=== PATIENT | male | born 1945 | race Caucasian/White ===

== ENCOUNTER 2016-12-23 14:57 | Emergency (ER) ==
[2016-12-23 15:01] VITALS: BP 137/76; TEMP 98.8; BMI 28.1
[2016-12-23 15:48] LABS: BASOPHILS # (AUTO) 0.1 K/uL (0-0.2); BASOPHILS % (AUTO) 0.5 % (0.0-3.0); EOSINOPHILS # (AUTO) 0.1 K/ul (0.0-0.7); EOSINOPHILS % (AUTO) 0.8 % (0.0-7.0); HEMATOCRIT 43.3 % (42.0-52.0); HEMOGLOBIN 14.8 g/dl (14.0-18.0); IMMATURE GRANULOCYTE % (AUTO) 0.3 % (0.0-5.0); LYMPHOCYTES # (AUTO) 1.9 K/uL (0.60-3.4); LYMPHOCYTES % (AUTO) 17.7 (10.0-50.0); MEAN CORPUSCULAR HEMOGLOBIN 33.3 pg (27.0-31.0); MEAN CORPUSCULAR HGB CONC 34.2 (31.8-35.4); MEAN CORPUSCULAR VOLUME 97.3 fl (80.0-94.0); MONOCYTES # (AUTO) 0.8 K/uL (0.4-2.0); MONOCYTES % (AUTO) 6.9 (0-10); NEUTROPHILS % (AUTO) 73.8; PLATELET COUNT 200 10^3/uL (140-440); RED BLOOD COUNT 4.45 10^6/ul (4.70-6.10); WHITE BLOOD COUNT 10.88 K/ul (4.2-10.2)
[2016-12-23 16:14] LABS: ALANINE AMINOTRANSFERASE 11 U/L (12-78); ALBUMIN 4.1 g/dL (3.4-5.0); ALBUMIN/GLOBULIN RATIO 1.28; ALKALINE PHOSPHATASE 51 U/L (56-119); ANION GAP 13.2; ASPARTATE AMINO TRANSFERASE 14 U/L (15-37); BILIRUBIN,TOTAL 1.29 mg/dL (0.00-1.20); BLOOD UREA NITROGEN 15 mg/dL (7-18); BUN/CREATININE RATIO 11.36; CALCIUM 9.3 mg/dL (8.2-10.2); CARBON DIOXIDE 27 mmol/L (23-31); CHLORIDE 104 mmol/L (98-107); CREATINE KINASE 65 U/L; CREATININE 1.32 mg/dL (0.60-1.10); GLUCOSE 101 mg/dL (82-115); POTASSIUM 4.2 mmol/L (3.5-5.1); SODIUM 140 mmol/L (136-145); TOTAL PROTEIN 7.3 g/dL (5.8-8.1)
--- NOTE | 2016-12-23 16:41 | CT ---
EXAM: CT chest without contrast HISTORY: Cough with history of emphysema. COMPARISON: CT chest 02/28/2014 and 03/06/2011 TECHNIQUE: Serial axial images of the chest were obtained from the lung apices to the upper abdomen without contrast. These were viewed in multiple planes. FINDINGS: The thyroid is normal. The visualized vessels are unremarkable without aneurysm or steno sis. The heart is normal in size without pericardial effusion. There are no pathologically enlarge d mediastinal or hilar lymph nodes. Scattered calcified mediastinal and hilar lymph nodes are presen t. There is no pneumothorax or pleural effusion. There is mild right basilar atelectasis. There is a central cavitary right lower lobe pulmonary nodule measuring 1.3 cm in diameter which is unchanged s michaelle 2013. There is mild emphysematous disease. There is a stable left upper lobe pleural nodule. The airways are patent. No new consolidation or nodule is identified. Soft tissues in the upper abdomen demonstrate mild perinephric stranding. The osseous structures de monstrate mild degenerative disease of the spine. IMPRESSION: 1. No change in right lower lobe cavitary pulmonary nodule since 2013 is considered benign. 2. Mild right basilar atelectasis with mild scattered emphysema. 3. Sequela of old granulomatous disease.
[2016-12-23] MEDS ORDERED: DECADRON 4 MG/ML SDV IM STA (16:52)
--- NOTE | 2016-12-23 16:52 | ED.PDOC ---
General ED Provider: Dr. SANDI CASILLAS Chief Complaint: Cough Stated Complaint: cough, bronchitis Time Seen by Physician: 15:00 (seen with staff at all times ) Mode of Arrival: Walk-In Information Source: Patient Exam Limitations: No limitations Primary Care Provider: DAMIEN ZULETA Nursing and Triage Documentation Reviewed and Agree: Yes Respiratory Complaint Exam - Respiratory Complaint/Exam Onset/Duration: 2 days Symptoms Are: Resolved Timing: Intermittent Initial Severity: Moderate Current Severity: None Location: Chest Character: Reports: Productive cough Alleviating: Reports: Spontaneous resolution Associated Signs and Symptoms: Denies: Rapid breathing, Dyspnea, Fever, Chills, Chest pain, Pleuritic chest pain, Wheezing, Hemoptysis, Dizziness, Calf pain, Calf swelling, Edema, URI, Nasal congestion, Hoarseness, Sinus discomfort, Vomiting, Sore throat, Weight loss, Decreased oral intake, Increased thirst, Increased appetite, Increased urination Related History: Reports: Similar episode History of Healthcare-Acquired Pneumonia: No Related Surgical History: Reports: None Pulmonary Embolism Risk Factors: None Review of Systems - Review Of Systems Constitutional: Reports: No symptoms Eyes: Reports: No symptoms Ears, Nose, Mouth, Throat: Reports: No symptoms Respiratory: Reports: Cough Cardiac: Reports: No symptoms GI: Reports: No symptoms : Reports: No symptoms Musculoskeletal: Reports: No symptoms Skin: Reports: No symptoms Neurological: Reports: No symptoms Endocrine: Reports: No symptoms Hematologic/Lymphatic: Reports: No symptoms All Other Systems: Reviewed and Negative Past Medical History - Past Medical History Previously Healthy: Yes Endocrine: Reports: None Cardiovascular: Reports: None Respiratory: Reports: None Hematological: Reports: None Gastrointestinal: Reports: None Genitourinary: Reports: None Neuro/Psych: Reports: None Musculoskeletal: Reports: None Cancer: Reports: None - Surgical History General Surgical History: Reports: None - Family History Family History: Reports: None - Social History Smoking Status: Former smoker Hx Substance Use: No Alcohol Screening: None Physical Exam - Physical Exam Appearance: Well-appearing, No pain distress, Well-nourished Eyes: BRIAN, EOMI, Conjunctiva clear ENT: Ears normal, Nose normal, Oropharynx normal Respiratory: Airway patent, Breath sounds clear, Breath sounds equal, Respirations nonlabored Cardiovascular: RRR, Pulses normal, No rub, No murmur GI/: Soft, Nontender, No masses, Bowel sounds normal, No Organomegaly Musculoskeletal: Normal strength, ROM intact, No edema, No calf tenderness Skin: Warm, Dry, Normal color Neurological: Sensation intact, Motor intact, Reflexes intact, Cranial nerves intact, Alert, Oriented Psychiatric: Affect appropriate, Mood appropriate Interpretation - Radiology Interpretation Radiology Interpretation By: Radiologist Radiology Results: No acute changes Exam Interpreted: CT Scan - [place] Operator Rate: Normal Rhythm: Sinus Ectopy: None - EKG Interpretation Rate: Normal Rhythm: Sinus Ectopy: None Golden: NL ST Segment: Normal Critical Care Note - Critical Care Note Total Time (mins): 0 Course - Course Hematology/Chemistry: 12/23/16 15:42 12/23/16 15:42 Orders, Labs, Meds: Lab Review 12/23/16 15:42 WBC 10.88 H RBC 4.45 L Hgb 14.8 Hct 43.3 MCV 97.3 H MCH 33.3 H MCHC 34.2 RDW Coeff of Ariad[place] 12.5 Plt Count 200 Immature Gran % (Auto) 0.3 Neut % (Auto) 73.8 Lymph % (Auto) 17.7 [place] % (Auto) 6.9 Eos % (Auto) 0.8 Baso % (Auto) 0.5 Immature Gran # (Auto) 0.0 Neut # 8.0 H Lymph # 1.9 [place] # 0.8 Eos # 0.1 Baso # 0.1 D-Dimer (Manual) 501.16 Sodium 140 Potassium 4.2 Chloride 104 Carbon Dioxide 27 Anion Gap 13.2 BUN 15 Creatinine 1.32 H Estimated GFR (MDRD) 53.00 BUN/Creatinine Ratio 11.36 Glucose 101 Calcium 9.3 Total Bilirubin 1.29 H AST 14 L ALT 11 L Alkaline Phosphatase 51 L Total Creatine Kinase 65 Troponin I < 0.0100 Total Protein 7.3 Albumin 4.1 Globulin 3.2 Albumin/Globulin Ratio 1.28 Orders Category Date Time Status EKG-(ED ONLY) Stat CARDIO 12/23/16 15:26 Completed CBC W/ AUTO DIFF Stat LAB 12/23/16 15:42 Completed COMPREHENSIVE METABOLIC PANEL Stat LAB 12/23/16 15:42 Completed CREATINE KINASE Stat LAB 12/23/16 15:42 Completed D-DIMER Stat LAB 12/23/16 15:42 Completed TROPONIN I Stat LAB 12/23/16 15:[address] CHEST W/O CONTRAST Stat RADS 12/23/16 15:25 Completed Vital Signs: Temp Pulse Resp BP Pulse Ox 12/23/16 14:58 98.8 F 84 16 137/76 96 Departure - Departure Time of Disposition: 16:52 Disposition: HOME SELF-CARE Discharge Problem: Cough, Bronchitis Condition: Good Pt referred to PMD for follow-up: No Prescriptions: Azithromycin [Zithromax] 500 mg PO DIRECTED #6 tablet Allergies/Adverse Reactions: Allergies doxycycline Adverse Reaction (Verified 12/23/16 15:02) the po version made him break out in rash but was able to take doxycycline per iv. they told him it was probably the coating. Home Medications: Ambulatory Orders Albuterol Sulfate [Proair Hfa] 2 puff IH BID PRN 12/23/16 Azithromycin [Zithromax] 500 mg PO DIRECTED #6 tablet 12/23/16 Simvastatin 20 mg PO BEDTIME 12/23/16 Disposition Discussed With: Patient
[2016-12-23] MEDS ORDERED: ZITHROMAX PO STA (17:05)
== END 2016-12-23 17:43 | disposition home or self-care (01) ==
LOC: ED 14:57
DX: J40 Bronchitis, not specified as acute or chronic (principal)
CPT/HCPCS: 36415; 80053; 82550; 84484; 85025; 85379; 93005; 93010; 96372; 99283

== ENCOUNTER 2016-12-28 10:18 | Outpatient (CLI) ==
--- NOTE | 2016-12-28 11:24 | US ---
Exam: Bilateral carotid arterial Doppler sonogram. Clinical indication: Dizziness. Findings: The peak systolic velocity within the right common carotid artery is 100 cm/sec. There is mild calc ified plaque at the right carotid bulb and origin of the right internal carotid artery. The peak sy stolic velocity within the right internal carotid artery is 80 cm/sec. The ratio of peak systolic v elocities within the right internal carotid artery to common carotid artery is 0.70. The end-diasto lic velocity within the right internal carotid artery is 20 cm/sec. According to the SRU consensus criteria, these findings correspond to a mild less than 50% stenosis at the origin of the right inte rnal carotid artery. The peak systolic velocity within the left common carotid artery is 80 cm/sec. There is mild calcif ied plaque at the left carotid bulb and origin of the left internal carotid artery. The peak systol ic velocity within the left internal carotid artery is 50 cm/sec. The ratio peak systolic velocitie s within the left internal carotid artery to left common carotid artery is 0.60. The end-diastolic velocity within the left internal carotid artery is 20 cm/sec. According to the SRU consensus crite jose alfredo, these correspond to a mild less than 50% stenosis at the origin of the left internal carotid ar annalisa. There is antegrade flow within the bilateral vertebral arteries. 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
--- NOTE | 2016-12-28 11:26 | US ---
Exam: Sonogram abdominal aorta. Clinical indication: Abdominal pain. Findings: The abdominal aorta within the upper, mid, and distal aspects measures 2.0 x 2.0, and 1.8 x 1.7, and 1.6 x 1.5 cm in diameter. There is some atherosclerotic vascular calcifications. There is normal color Doppler flow within the abdominal aorta. The right and left common iliac arteries measure 1.2 x 1.0 cm in diameter and demonstrate normal col or Doppler flow. Impression: No evidence of abdominal aortic aneurysm.
== END 2016-12-28 10:19 | disposition home or self-care (01) ==
LOC: RAD 10:18
PROVIDERS: ATTEND Internal Medicine
DX: R10.9 Unspecified abdominal pain (principal); R42 Dizziness and giddiness
CPT/HCPCS: 76775